=== PATIENT | female | born 1950 | race African-American/Black ===

== ENCOUNTER 2018-10-20 18:03 | Observation (INO) ==
[2018-10-20] MEDS ORDERED: ACETAMINOPHEN 325 MG TABLET PO PRN (20:40)
[2018-10-20] MEDS: dilTIAZem Drip 125 MG/125 ML PREMIX IV SCH (21:56)
[2018-10-21 05:40] LABS: Basophils # 0.1 10*3/uL (0.0-0.2); Basophils % 1.6 % (0.0-0.8); Eosinophils # 0.1 10*3/uL (0.0-0.87); Eosinophils % 3.5 % (0.00-10.9); Immature Granulocytes % 0.3 %; Immature Granulocytes Absolute 0.01 #; Lymphocytes # 1.7 10*3/uL (1.4-4.0); Lymphocytes % 45.8 % (21.3-54.2); Mean Corpuscular HGB Conc 31.4 GM/DL (32-36); Mean Corpuscular Volume 94.3 FL (87-102); Mean Platelet Volume 10.7 FL (9.6-12.0); Monocytes % 13.2 % (1.7-12.7); Neutrophils % 35.6 % (38.7-73.9); Platelet Count 188 T/CUMM (130-400); Red Blood Count 3.71 MC/CUMM (3.8-5.5); Red Cell Distribution Width 14.6 % (9.3-17.3); White Blood Count 3.7 T/CUMM (4-12)
[2018-10-21 06:11] LABS: Eosinophils 5 % (0-10); Hypochromasia 1+; Lymphocytes 54 % (20-55); Microcytosis 1+; Platelet Estimate Normal; Segmented Neutrophils 32 % (50-85); Total Cells Counted 100
[2018-10-21 06:12] LABS: Polychromasia Few
[2018-10-21 06:26] LABS: Alanine Aminotransferase 48 U/L (13-56); Albumin 3.3 G/DL (3.4-5.0); Alkaline Phosphatase 52 U/L (45-117); Aspartate Amino Transferase 25 U/L (0-37); Bilirubin,Total < 0.39 MG/DL (0.2-1.0); Blood Urea Nitrogen 17 MG/DL (7-18); Calcium 8.5 MG/DL (8.5-10.1); Glucose 105 MG/DL (74-106); Total Protein 6.6 G/DL (6.4-8.3)
[2018-10-21] MEDS ORDERED: ENOXAPARIN 80 MG/0.8 ML SYRINGE SUBCUT ONE (08:43)
[2018-10-21] MEDS: PANTOPRAZOLE 40 MG TABLET PO SCH (08:58)
[2018-10-21] MEDS ORDERED: ENOXAPARIN 80 MG/0.8 ML SYRINGE SUBCUT SCH (10:00)
[2018-10-21] MEDS: DILTIAZEM 30 MG TABLET PO SCH ×2 (17:00→20:37)
[2018-10-21] MEDS: APIXABAN 5 MG TABLET PO SCH (20:37)
[2018-10-21] MEDS: dilTIAZem Drip 125 MG/125 ML PREMIX IV SCH (21:39)
[2018-10-22 06:07] LABS: Basophils # 0.1 10*3/uL (0.0-0.2); Basophils % 1.3 % (0.0-0.8); Eosinophils # 0.1 10*3/uL (0.0-0.87); Eosinophils % 3.7 % (0.00-10.9); Hematocrit 33.1 VOL% (35.7-47.0); Hemoglobin 10.3 GM/DL (12.0-16.0); Immature Granulocytes % 0.3 %; Immature Granulocytes Absolute 0.01 #; Lymphocytes # 1.6 10*3/uL (1.4-4.0); Lymphocytes % 43.9 % (21.3-54.2); Mean Corpuscular HGB Conc 31.1 GM/DL (32-36); Mean Corpuscular Volume 94.6 FL (87-102); Mean Platelet Volume 10.9 FL (9.6-12.0); Monocytes % 13.4 % (1.7-12.7); Neutrophils % 37.4 % (38.7-73.9); Platelet Count 182 T/CUMM (130-400); Red Cell Distribution Width 14.5 % (9.3-17.3); White Blood Count 3.7 T/CUMM (4-12)
[2018-10-22 06:30] LABS: Calcium 8.5 MG/DL (8.5-10.1)
[2018-10-22 06:33] LABS: Risk Ratio 3.07; VLDL CHOLESTEROL 13.4 MG/DL
[2018-10-22 06:37] LABS: Eosinophils 6 % (0-10); Hypochromasia Slight; Lymphocytes 44 % (20-55); Platelet Estimate Adequate; Segmented Neutrophils 44 % (50-85); Total Cells Counted 100
[2018-10-22] MEDS ORDERED: DILTIAZEM 30 MG TABLET PO PRN (09:58)
[2018-10-22] MEDS ORDERED: amLODIPine 5 MG TABLET PO SCH (10:00)
[2018-10-22] MEDS ORDERED: DILTIAZEM CD 120 MG CAPSULE PO SCH (10:00)
[2018-10-22] MEDS ORDERED: FLUTICASONE 220 MCG/PUFF INHALER 12 GM INH SCH (10:00)
[2018-10-22] MEDS ORDERED: BECLOMETHASONE 80 MCG/PUFF INHALER 8.7 GM INH SCH (10:00)
[2018-10-22] MEDS: APIXABAN 5 MG TABLET PO SCH (10:13)
[2018-10-22] MEDS: PANTOPRAZOLE 40 MG TABLET PO SCH (10:14)
[2018-10-22] MEDS: DILTIAZEM 30 MG TABLET PO SCH (10:15)
[2018-10-22 11:26] VITALS: BP 143/66
== END 2018-10-22 15:45 | disposition home or self-care (01) ==
LOC: N.TELES → SUATTDRO 19:50
PROVIDERS: ADMIT Internal Medicine; ATTEND Internal Medicine